=== PATIENT | male | born 1995 | race Caucasian/White ===

== ENCOUNTER 2017-05-29 02:23 | Emergency (ER) | payer BC ==
[~2017-05-29] VITALS: Ht 175.3 cm; Wt 49.4 kg
[~2017-05-29 02:23] MED LIST: BENZ100C70 PO; MAG355OR15 PO; ONDA4TAB35 PO
[2017-05-29 02:27] VITALS: Ht 175.3 cm; Wt 49.4 kg
[2017-05-29] MEDS ORDERED: IBUPROFEN 800 MG TAB PO ONE (03:00)
--- NOTE | 2017-05-29 03:17 | RADRPT ---
PROCEDURE: CT facial bones CLINICAL INDICATION: Trauma, nasal bone fracture TECHNIQUE: A CT of the facial bones was performed on a GE 64-slice CT scanner utilizing high-resol ution axial images. Sagittal, and coronal multiplanar reformatted images were made. The CTDIvol is 29.46, 29.49 mGy and the DLP is 523.85, 524.38 mGy-cm. One or more of the following dose reductio n techniques were used: automated exposure control, adjustment of the mA and/or kV according to marline ent size, or use of iterative reconstruction technique. DICOM images are available. COMPARISON: None. FINDINGS: There is nasal soft tissue swelling and bilateral comminuted, displaced nasal bone fractures. Displa gutierrez fractures of the nasal process of the maxilla is also noted. The orbital bones and contents are intact. The mandible and temporomandibular joints are normal. The paranasal sinuses are well pneum atized. There is a large right deon bullosa. The nasal septum is deviated to the left. There is m ild right sphenoid sinus mucosal thickening. IMPRESSION: Comminuted bilateral nasal bone fractures. Fracture of the nasal process the maxilla. Large right deon bullosa and left nasal septal deviation. Physician Kenya Date Time Electronically viewed and signed by Physician Kenya on 05/29/2017 03:17 /
[2017-05-29] MEDS ORDERED: IBUP800T25 PO (03:27)
--- NOTE | 2017-05-29 03:41 | ERD ---
ER Documentation Chief Complaint Chief Complaint sp fall from Departing board sustained nasal injury, no loc HPI 21-year-old male complaining of possible nasal fracture. Patient stated that he fell off a half a port about 1 hour ago, and landed on his face. He has pain on his nose, and noticed his nose is shifted to the right. He had copious nosebleed, and the bleeding has stopped. She stated that he had been drinking alcohol prior to the accident. Denies loss of consciousness in the fall. Denies nausea or vomiting. Denies any other injuries. ROS All systems reviewed and are negative except as per history of present illness. Medications Home Meds Active Scripts Ibuprofen* (Motrin*) 800 Mg Tab, 800 MG PO Q6H Y for PAIN AND OR ELEVATED TEMP, #30 TAB Prov:BRANDIE LOVE DIRECTOR TELEVISION 05/29/17 Benzonatate* (Tessalon Perle*) 100 Mg Capsule, 100 MG PO Q8H Y for COUGH, #10 CAP Prov:BROCK SAHU MD 12/10/14 Mag Hydrox/Al Hydrox/Simeth (Maalox Max Strength Susp) 769 Ml Oral.susp, 2 TSP PO TID, #12 OZ Prov:BROCK SAHU MD 12/10/14 Ondansetron Hcl* (Zofran* ODT) 4 mg -ODT Tab.disper, 4 MG PO Q6 Y for NAUSEA AND /OR VOMITING, #10 TAB Prov:BROCK SAHU MD 12/10/14 Allergies Allergies: Coded Allergies: No Known Allergy (Unverified , 05/29/17) PMhx/Soc Medical and Surgical Hx: pt denies Medical Hx, pt denies Surgical Hx Hx Alcohol Use: Yes (TONIGHT) Hx Substance Use: No Hx Tobacco Use: No Physical Exam Vitals Vital Signs Date Time Temp Pulse Resp B/P Pulse Ox O2 Delivery O2 Flow Rate FiO2 05/29/17 02:27 97.8 116 20 122/72 98 Physical Exam General: Patient is well-developed. Awake, alert, and conversant, in no apparent distress Skin: Warm and dry Head: Normocephalic, atraumatic without palpable deformities Eyes: Pupils equal, round, and reactive to light. Extraocular movements intact. No periorbital ecchymosis or step-off Ears: Canals patent. Tympanic membranes are clear. No maldonado sign. No hemotympanum Nose/face: Nasal rn bone marrow transplant to palpation, septum deviated to the right, no septal hematoma. Facial bones are nontender to palpation and stable with attempts at manipulation Neck: No midline point tenderness, step-off, or deformity to firm palpation of posterior cervical spine. Trachea midline. Carotids equal. No masses. No JVD. Full range of motion of the neck without limitation or pain Chest: No surface trauma. Nontender without crepitus or deformity. No palpable subcutaneous air. Lungs have good tidal volume, lungs clear to auscultate bilaterally Heart: Regular rate and rhythm. No murmur, rub, or gallop Extremities: No surface trauma. Full range of motion without limitation or pain. Good strength in all extremities. Sensation to light touch intact. All peripheral pulses are intact and equal Neuro: Alert and oriented 4, GCS 15, cranial nerves II through XII intact. Motor and sensory exam is nonfocal. Reflexes are symmetric Results 24 hrs Current Medications Medications (Trade) Dose Ordered Sig/Edouard Route PRN Reason Start Time Stop Time Status Last Admin Dose Admin Ibuprofen (Motrin) 800 mg ONCE ONCE PO 05/29/17 03:00 05/29/17 03:01 DC 05/29/17 02:45 PROCEDURE: CT facial bones CLINICAL INDICATION: Trauma, nasal bone fracture TECHNIQUE: A CT of the facial bones was performed on a GE 64-slice CT scanner utilizing high-resolution axial images. Sagittal, and coronal multiplanar reformatted images were made. The CTDIvol is 29.46, 29.49 mGy and the DLP is 523.85, 524.38 mGy-cm. One or more of the following dose reduction techniques were used: automated exposure control, adjustment of the mA and/or kV according to patient size, or use of iterative reconstruction technique. DICOM images are available. COMPARISON: None. FINDINGS: There is nasal soft tissue swelling and bilateral comminuted, displaced nasal bone fractures. Displaced fractures of the nasal process of the maxilla is also noted. The orbital bones and contents are intact. The mandible and temporomandibular joints are normal. The paranasal sinuses are well pneumatized. There is a large right deon bullosa. The nasal septum is deviated to the left. There is mild right sphenoid sinus mucosal thickening. IMPRESSION: Comminuted bilateral nasal bone fractures. Fracture of the nasal process the maxilla. Large right deon bullosa and left nasal septal deviation. Physician Kenya Date Time Electronically viewed and signed by Mariola Abarca Physician on 05/29/2017 03: 17 CS/ CC: BRANDIE LOVE DIRECTOR TELEVISION Procedures/MDM Well-appearing 21-year-old male present ED with nasal trauma after a fall. CT facial bones showed comminuted bilateral nasal bone fractures, fracture of the nasal process of the maxilla, large right deon bullosa and left nasal septal deviation. Visual acuity: 20/20, right 20/20, bilateral 20/20. Patient has normal EOM, no sign of entrapment. I doubt intracranial bleeding or skull fracture. He does not have septal hematoma. Patient given referral to ENT for follow-up. Patient appears well, stable for discharge and outpatient management. Medical decision making shared with patient and family. Education provided to patient and family. Patient and family expressed understanding of the plan. Medications on discharge: Ibuprofen. Follow-up: Primary care provider or ENT in 2-3 days or return to ED if worse. Disclaimer: Inadvertent spelling and grammatical errors are likely due to EHR/ dictation software use and do not reflect on the overall quality of patient care. Also, please note that the electronic time recorded on this note does not necessarily reflect the actual time of the patient encounter. Departure Diagnosis: Primary Impression: Nasal fracture Encounter type: initial encounter Fracture type: closed Qualified Code: S02.2XXA - Closed fracture of nasal bone, initial encounter Condition: Stable Patient Instructions: Fracture, Nose (With X-Ray) Referrals: DAMARIS DOW MD,NICOLE Edouard [place] [facility] [place] HAVE RECEIVED A MEDICAL SCREENING EXAM AND THE RESULTS INDICATE THAT YOU DO NOT HAVE A CONDITION THAT REQUIRES URGENT TREATMENT IN THE EMERGENCY DEPARTMENT. FURTHER EVALUATION AND TREATMENT OF YOUR CONDITION CAN WAIT UNTIL YOU ARE SEEN IN YOUR DOCTORS OFFICE WITHIN THE NEXT 1-2 DAYS. IT IS YOUR RESPONSIBILITY TO MAKE AN APPOINTMENT FOR FOLOW-UP CARE. IF YOU HAVE A PRIMARY DOCTOR --you should call your primary doctor and schedule and appointment IF YOU DO NOT HAVE A PRIMARY DOCTOR YOU CAN CALL OUR PHYSICIAN REFERRAL HOTLINE AT . IF YOU CAN NOT AFFORD TO SEE A PHYSICIAN YOU CAN CHOSE FROM THE FOLLOWING [facility] INSTITUTIONS: [facility] [address] [place] [address] [facility] [address] [place] [address] [facility] [address] [place] [address] Additional Instructions: Call your primary care doctor TOMORROW for an appointment during the next 2-3 days.See the doctor sooner or return here if your condition worsens before your appointment time. BRANDIE LOVE NP May 29, 2017 03:41
== END 2017-05-29 03:58 | disposition home or self-care (01) ==
LOC: FTE 02:23
DX: S02.2XXA Fracture of nasal bones, initial encounter for closed fracture (principal); V00.131A Fall from skateboard, initial encounter; Y92.9 Unspecified place or not applicable
CPT/HCPCS: 70486; Z7502; Z7610

== ENCOUNTER 2017-11-22 01:34 | Emergency (ER) | END 2017-11-22 07:31 | disposition home or self-care (01) ==

== ENCOUNTER 2017-12-29 07:20 | Emergency (ER) | END 2017-12-29 09:13 | disposition home or self-care (01) ==

== ENCOUNTER 2018-04-01 19:27 | Emergency (ER) | END 2018-04-01 22:53 | disposition home or self-care (01) ==

== ENCOUNTER 2018-12-20 00:02 | Emergency (ER) | payer BC ==
[~2018-12-20] VITALS: Ht 172.7 cm; Wt 48.4 kg
[~2018-12-20 00:02] MED LIST changes: +BENZ-6 PO; -BENZ100C70 PO; +GUAI120011 PO; +HC30CR25 TOP; +HYDR-3980 PO; +IBUP800T48 PO; +LORA-441 PO; +NAPR-985 PO
[2018-12-20 00:08] VITALS: Ht 172.7 cm; Wt 48.4 kg
[2018-12-20] MEDS ORDERED: SOD CHLORIDE 0.9% 1,000 ML IV STA (00:22)
[2018-12-20] MEDS ORDERED: LORAZEPAM 2 MG INJ IV ONE (00:30)
--- NOTE | 2018-12-20 01:34 | ERD ---
ER Documentation Chief Complaint Chief Complaint took Oxycontin&coccaine w/alcohol today HPI This is a 23-year-old male who is doing cocaine all day today and he decided that he felt too jittery so he took 3 OxyContin and drank some alcohol to try to calm him down. He got concerned that he might harm himself so he came to the ER for evaluation. He is having no chest pain, no focal neurological complaints, no abdominal pain vomiting or diarrhea. ROS All systems reviewed and are negative except as per history of present illness. Medications Home Meds Active Scripts Lorazepam* (Ativan*) 0.5 Mg Tablet, 0.5 MG PO Q8 PRN for ANXIETY, #7 TAB Prov:MEGAN RAMIREZ 04/01/18 Hydrocortisone* Topical (Hydrocortisone* Topical) 2.5%-28.3 Gm Cream..g., 1 APPLIC TOP BID, #1 TUB Prov:YOGI MONTOYA PA-C 12/29/17 Naproxen* (Naprosyn*) 500 Mg Tablet, 500 MG PO BID PRN for PAIN AND/OR INFLAMMATION, #30 TAB Prov:YOGI MONTYOA PA-C 12/29/17 Guaifenesin (Mucinex) 1,200 Mg Tab.er.12h, 1200 MG PO BID for 5 Days, TAB Prov:LITA,SHERWIN 11/22/17 Hydrocodone/Acetaminophen ([place] 10-325 Tablet) 1 Each Tablet, 1 TAB PO Q6H PRN for PAIN, #7 TAB Prov:LITA,SHERWIN 11/22/17 Ibuprofen* (Motrin*) 800 Mg Tab, 800 MG PO Q6H PRN for PAIN AND OR ELEVATED TEMP, #30 TAB Prov:BRANDIE LOVE NP 05/29/17 Benzonatate* (Tessalon Perle*) 100 Mg Capsule, 100 MG PO Q8H PRN for COUGH, #10 CAP Prov:BROCK SAHU MD 12/10/14 Mag Hydrox/Al Hydrox/Simeth (Maalox Max Strength Susp) 769 Ml Oral.susp, 2 TSP PO TID, #12 OZ Prov:BROCK SAHU MD 12/10/14 Ondansetron Hcl* (Zofran* ODT) 4 mg -ODT Tab.disper, 4 MG PO Q6 PRN for NAUSEA AND/OR VOMITING, #10 TAB Prov:BROCK SAHU MD 12/10/14 Allergies Allergies: Coded Allergies: No Known Allergy (Unverified , 12/29/17) PMhx/Soc History of Surgery: No Anesthesia Reaction: No Hx Neurological Disorder: No Hx Respiratory Disorders: Yes (pnuemonia) Hx Cardiac Disorders: No Hx Psychiatric Problems: No Hx Miscellaneous Medical Probl: No Hx Alcohol Use: Yes (SOCIAL) Hx Substance Use: No Hx Tobacco Use: Yes FmHx Family History: No coronary disease Physical Exam Vitals Vital Signs Date Temp Pulse Resp B/P (MAP) Pulse Ox O2 O2 Flow FiO2 Time Delivery Rate 12/20/18 98.3 139 22 105/61 98 00:08 (76) Physical Exam Const: Well-developed, well-nourished Head: Atraumatic, normocephalic Eyes: Normal Conjunctiva, PERRLA, EOMI, normal sclera, no nystagmus ENT: Normal External Ears, Nose and Mouth, moist mucus membranes. Neck: Full range of motion. No meningismus, no lymphadenopathy. Resp: Clear to auscultation bilaterally, no wheezing, rhonchi, rales Cardio: Tachycardia heart rate 118 ythm, no murmurs, S1 S2 present] Abd: Soft, non tender x 4, non distended. Normal bowel sounds, no guarding or rebound, no pulsitile abdominal masses or bruits Skin: No petechiae or rashes, no ecchymosis , no maculopapular rash Back: No midline or flank tenderness Ext: No cyanosis, or edema, FROM x 4, normal inspection, neurovascularly intact x 4 Neur: Awake and alert, STR 5/5 x 4, sensation intact x 4, no focal findings, cerebellum intact Psych: Normal Mood and Affect Results 24 hrs Current Medications Medications Dose Sig/Edouard Start Time Status Last (Trade) Ordered Route PRN Stop Time Admin Dose Reason Admin Sodium 1,000 ml @ Q1H STAT 12/20/18 DC 12/20/18 Chloride 1,000 mls/hr IV 00:22 00:37 12/20/18 01:21 Lorazepam 1 mg ONCE ONCE 12/20/18 DC 12/20/18 (Ativan) IV 00:30 00:37 12/20/18 00:31 Procedures/MDM Patient get some IV fluids and Ativan and observe him here. He is very calm and in no acute distress. Discussed stopping drug use Departure Diagnosis: Primary Impression: Substance abuse Condition: Stable ARLINE STUART DO Dec 20, 2018 01:34
[2018-12-20 02:46] VITALS: BP 120/81; PULSE 105; RESP 22
== END 2018-12-20 02:46 | disposition home or self-care (01) ==
LOC: E/R 00:02
DX: F14.10 Cocaine abuse, uncomplicated (principal); F10.10 Alcohol abuse, uncomplicated; F11.10 Opioid abuse, uncomplicated; Z87.891 Personal history of nicotine dependence
CPT/HCPCS: 96374; J2060; J7030; Z7502; Z7610